=== PATIENT | female | born 2000 | race Caucasian/White ===

== ENCOUNTER 2022-12-28 06:40 | Day surgery (SDC) | payer BC ==
[~2022-12-28] VITALS: Ht 170.2 cm; Wt 85.0 kg
--- NOTE | 2022-12-28 09:45 | NUR ---
12/28/22 0945 Amber Reddy 0941- PT ARRIVES TO PACU AWAKE AND TALKING. PT REPORTS NO PAIN OR NAUSEA. RESP EVEN AND UNLABORED. OXYGEN SAT HIGH 90'S TO 100% ON RA. PT IS ABLE TO MOVE HER LEGS BUT CANNOT LIFT THEM FAR OFF OF THE BED. PT REPORTS SHE HAS DECREASED SENSATION TO HER FEET.
[2022-12-28] MEDS ORDERED: HYDROCODON-ACE1 EAC8 PO (10:16)
--- NOTE | 2022-12-28 10:20 | NUR ---
PT ALERT, ORIENTED AND SUPPORTED BY HER BOYFRIEND ROGER. PT IS SOMEWHAT ANXIOUS, BUT PLEASANT. ALL QUESTIONS ASKED ANSWERED. PT REQUESTED PRAYER ROGER WILL ACCOMPANY HER AFTER DC. WILL FOLLOW
--- NOTE | 2022-12-28 10:25 | NUR ---
PT IS BACK TO DS FROM PACU. SHE IS AWAKE AND ALERT. SHE IS STILL WAITING FOR HER TOES TO WAKE UP. SHE WOULD LIKE A CUP OF COFFEE. CALL LIGHT WITHIN REACH. BOYFRIEND AT BEDSIDE. NO ADDITIONAL NEEDS AT THIS TIME.
--- NOTE | 2022-12-28 11:58 | OR ---
[facility] [address], [place] [address] Signed DATE OF OPERATION: 12/28/2022 SURGEON: Rishi Bee MD PREOPERATIVE DIAGNOSIS: Three external skin tags. POSTOPERATIVE DIAGNOSIS: Three external skin tags (5 mm x2, 3 mm x1). PROCEDURE: Excision of three external anal skin tags. ESTIMATED BLOOD LOSS: None. INDICATIONS: Luanne is a 22-year-old lady, who was asked to see me for hemorrhoids and skin tags. She describes constipation as a child. She was planning to have surgery around age 12 or 13. However, her schedule was quite busy and she never did make those arrangements. She has now moved to [place], [place] to be closer to her boyfriend. 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 She has been having trouble with pain and bleeding when she wipes. She can feel three lumps around the anus. She said the lump in the posterior midline is the most painful and most troublesome. She had gone to her primary care provider. She had been through all the medical treatments for hemorrhoids clear back to when she was a child. She is actually very knowledgeable with respect to hemorrhoids and anal skin tags. She was asked to see me as a local general surgeon. In the office on exam, she indeed has three external skin tags. She has two skin tags each 5 mm in diameter. One is in the posterior midline, the other is in the anterior midline. The posterior midline, the base is a bit narrow and and gives her the most trouble and just off to the right of the anterior midline, there is a smaller 4 mm skin tag as well. In the office, I gave her our brochure on hemorrhoids and skin tags. We looked at that carefully. She understands the only way to treat an external hemorrhoidal skin tag is to excise it. She understands this will be a day surgery and she will go home afterwards. There is risk to the surgery including, but not limited to bleeding, infection, scarring, change in contour of the skin as well as recurrent hemorrhoids or skin tags. She had expressed understanding and wished to proceed. DESCRIPTION OF PROCEDURE: I met with Luanne and her boyfriend Tenzin in our preop area. After answering the Electronically Signed By: RISHI BEE MD 12/28/22 1158 PATIENT NAME: KATE JONES OPERATIVE REPORT DATE OF : 00 REPORT #: [id number] PHYSICIAN: RISHI BEE MD PCP: LOUIE HALEY REPORT IS CONFIDENTIAL AND NOT TO BE RELEASED WITHOUT AUTHORIZATION [facility] [address], [place] [address] Signed questions, Luanne was taken into the operating room and given a saddle block by our nurse gear tooth lapping machine operator. She was then rotated in the prone lissa-knife position. We held the heparin because of the saddle block and the fact that this is a very short case. We did use SCDs on her lower extremities. She was given preoperative antibiotics. She was then prepped and draped in the usual sterile fashion. A digital rectal exam shows good sphincter tone circumferentially. We could easily see the three external hemorrhoids. Not much really in the way of external hemorrhoids. The half-valdes retractor was used to visualize the entire anal canal. Very little in the way of any internal hemorrhoid tissue. The mucosa was quite healthy. After this, we simply excised all three of the skin tags with the help of our cautery. They were placed into one jar and passed off the field. We injected some additional local anesthetic underneath the two areas in the anterior and posterior midline. Dry gauze and an ABD were then applied. She was then rotated in the supine position and taken into recovery room in stable condition. Rishi Bee MD ALB/MODL /[id number] cc: ANITRA Tam MD Copies: LOUIE HALEY ANDREW L MD ~ Electronically Signed By: RISHI BEE MD 12/28/22 1158 PATIENT NAME: KATE JONES OPERATIVE REPORT DATE OF : 00 REPORT #: [id number] PHYSICIAN: RISHI BEE MD PCP: LOUIE HALEY REPORT IS CONFIDENTIAL AND NOT TO BE RELEASED WITHOUT AUTHORIZATION
--- NOTE | 2022-12-28 12:01 | NUR ---
PT HAS FEELING BACK IN ALL HER TOES AND FEET. SHE IS ABLE TO STAND, BUT STILL SLIGHTLY SHAKY WITHOUT ASSISTANCE. SHE IS HELPED TO BEDSIDE COMMODE WHERE SHE VOIDS APPROX 450MLS OF PALE YELLOW URINE. CALL LIGHT WITHIN REACH. GOING TO HANG OUT FOR A LITTLE BIT LONGER.
--- NOTE | 2022-12-28 12:04 | NUR ---
PT BACK TO FROM PACU. PT ALERT, STILL SOME NUMBNESS IN LEGS. ENCOURAGED TO USE CALL LIGHT FOR ASSISTANCE-PT ACKNOWLEDGES. NO PAIN, ROGER AT BS
--- NOTE | 2022-12-28 13:01 | NUR ---
PT REPORTS TINGLING HAS RESOLVED, SHE WOULD LIKE TO TRY STANDING AND WALKING AGAIN. SHE IS ABLE TO WALK WITHOUT ISSUES. SHE IS EDUCATED ON HOW BEST TO DRESS HERSELF AND TO OPEN HER CURTAIN WHEN READY.
--- NOTE | 2022-12-28 13:14 | NUR ---
SABRINA 1312: PT AND BOYFRIEND ARE GIVEN VERBAL AND WRITTEN DC INSTRUCTIONS. THEY BOTH VERBALIZE UNDERSTANDING. NO QUESTIONS AT THIS TIME. SHE IS GIVEN AN EXTRA PERIPAD PER HER REQUEST. PT IS TAKEN TO PERSONAL VEHICLE VIA WC.
--- NOTE | 2022-12-31 16:01 | PATH ---
[facility] [address] [place], [place] [address] Signed SPECIMEN(S): A PERIANAL SPECIMEN SOURCE: A. PERIANAL CLINICAL HISTORY: Perianal skin tags x 3. FINAL PATHOLOGIC DIAGNOSIS: Perianal biopsy: - Benign squamous fibroepithelial polyps. - Focal dilated vasculature. JVR:[facility]:C2NR MICROSCOPIC EXAMINATION: Histologic sections of all submitted blocks are examined by light microscopy. These findings, together with the gross examination, support the pathologic diagnosis. GROSS DESCRIPTION: The specimen, labeled and designated "Fredis, perianal skin tags x 3," is received in formalin and consists of three pink-moura, wrinkled pieces of skin (1.1, 1.5 and 2.0 cm in greatest dimension). A [employer] section of each piece is submitted in cassette (A1). AC (under the direct supervision of a pathologist) The Gross Description was prepared using a voice recognition system. The report was reviewed for accuracy; however, sound-alike word errors, addition and/or deletions may occur. If there is any question about this report, please contact Client Services. PERFORMING LABORATORY: The technical component was performed by [facility], [address] [place] [id number] (CLIA# [id number]). Professional interpretation was performed by [facility], [address] [place] [id number] (CLIA#: [id number]). Diagnostician: Chandler Mcdonald MD Pathologist Electronically Signed 12/31/2022 PATIENT NAME: KATE JONES PATHOLOGY DATE OF : 00 REPORT #: [id number] PHYSICIAN: [facility] PCP: LOUIE HALEY REPORT IS CONFIDENTIAL AND NOT TO BE RELEASED WITHOUT AUTHORIZATION [address] [place], [place] [address] Signed Copies: ~ PATIENT NAME: KATE JONES PATHOLOGY DATE OF : 00 REPORT #: [id number] PHYSICIAN: [facility] PCP: LOUIE HALEY REPORT IS CONFIDENTIAL AND NOT TO BE RELEASED WITHOUT AUTHORIZATION
--- NOTE | 2022-12-31 17:41 | NUR ---
POST DISCHARGE CALL BACK MADE, PT STATES BEING IN "EXCRUCIATING PAIN SINCE FIRST BOWEL MOVEMENT." ENCOURAGED TO TAKE PRESCRIBED PAIN MEDICATION AND IF PAIN PERSISTS, TO CALL DR. BEE'S OFFICE.
== END 2022-12-28 13:15 | disposition home or self-care (01) ==
LOC: DS 06:40
PROVIDERS: ATTEND Colon & Rectal Surgery
PROC: 0HB9XZZ Excision of Perineum Skin, External Approach (ICD-10-PCS; principal; 2022-12-28 09:00)
DX: K64.4 Residual hemorrhoidal skin tags (principal); K62.0 Anal polyp
CPT/HCPCS: J0330; J0690; J1100; J2250; J2405; J2704; J3010; J7121